=== PATIENT | male | born 1995 | race Hispanic/Latino ===

== ENCOUNTER 2017-10-29 15:02 | Inpatient (IN) | payer SELFPAY ==
[2017-10-29] MEDS ORDERED: Ondansetron HCl/PF 4 MG/2 ML Vial ONE (15:53)
[2017-10-29] MEDS ORDERED: Dextrose 50% Abboject 50 ML SYRINGE SLOW IVP PRN (17:59)
[2017-10-29] MEDS ORDERED: Dextrose 5% in Water 1,000 ML IV PRN (17:59)
[2017-10-29 18:01] LABS: #Eosinphils 0.2 thou/uL (0.0-0.7); #Lymphocytes 2.5 thou/uL (1.20-3.40); #Monocytes 0.9 thou/uL (0.11-0.59); #Neutrophils 6.2 thou/uL (1.40-6.50); %Basophils 0.4 % (0.0-1.0); %Eosinophils 1.6 % (0.0-10.0); %Lymphocytes 25.5 % (21.0-51.0); %Monocytes 9.4 % (0.0-10.0); %Neutrophils 63.1 % (42.0-75.0); Hemoglobin 14.5 g/dL (14.0-18.0); Mean Corpuscular HGB CONC 34.6 g/dL (32.0-36.0); Mean Corpuscular Hemoglobin 32.5 pg (27.0-31.0); Mean Corpuscular Volume 93.8 fl (80.0-94.0); Platelet Count 260 thou/uL (130-400); RBC Distribution Width 11.8 % (11.5-14.5); Red Blood Cell (RBC) Count 4.45 mill/uL (4.70-6.10); White Blood Cell (WBC) Count 9.9 thou/uL (4.8-10.8)
[2017-10-29] MEDS ORDERED: Acetaminophen 1,000 MG in Premix Bag 1 BAG IVPB PRN (18:01)
[2017-10-29 18:07] LABS: INR-International Normal Ratio 1.2; PTT 36.6 SEC (22.9-36.1); Prothrombin Time 15.1 SEC (12.0-14.7)
[2017-10-29 18:25] LABS: ALT (SGPT) 17 U/L (8-55); AST (SGOT) 16 U/L (5-34); Albumin 4.1 g/dL (3.5-5.0); Alkaline Phosphatase 74 U/L (40-150); Anion Gap 11 mmol/L (10-20); BUN (Urea Nitrogen) 17 mg/dL (8.9-20.6); Bilirubin, Total 1.9 mg/dL (0.2-1.2); Calc. Creatinine Clearance 0 mL/min (70-130); Calcium 9.1 mg/dL (7.8-10.44); Carbon Dioxide 26 mmol/L (22-29); Chloride 106 mmol/L (98-107); Estimated GFR-MDRD Greater than 90; Globulin 2.8 g/dL (2.4-3.5); Glucose 78 mg/dL (70-105); Potassium 4.1 mmol/L (3.5-5.1); Protein, Total 6.9 g/dL (6.0-8.3); Sodium 139 mmol/L (136-145)
[2017-10-29] MEDS: Lactated Ringer's 1,000 ML IV SCH (20:33)
[2017-10-29] MEDS: Enoxaparin Sodium 40 MG/0.4 ML SYRINGE SC SCH (20:34)
[2017-10-29 22:35] VITALS: BMI 29.2
[2017-10-29] MEDS: Ketorolac Tromethamine 30 MG/ML VIAL IVP SCH (23:51)
[2017-10-29] MEDS: Piperacillin/Tazobactam 4.5 GM in Sodium Chloride 0.9% 100 ML IVPB SCH (23:52)
[2017-10-30] MEDS: Piperacillin/Tazobactam 4.5 GM in Sodium Chloride 0.9% 100 ML IVPB SCH ×2 (05:30→18:50)
[2017-10-30] MEDS: Ketorolac Tromethamine 30 MG/ML VIAL IVP SCH ×2 (05:30→18:49)
[2017-10-30] MEDS: Lactated Ringer's 1,000 ML IV SCH ×2 (05:35→18:49)
--- NOTE | 2017-10-30 05:52 | HP ---
HISTORY OF PRESENT ILLNESS: Talon Land is a 22-year-old male, lives in [place], transferred fro m [facility] (Sunday). The patient onset of pain, right lower quadrant, Sunday he has had sub jective fever. He was transferred after a CAT scan in our Emergency Room, he had changes suggestive of appendicitis. He had a white count of 11,000. He is afebrile. ALLERGIES: None. TOBACCO: None. ALCOHOL: None. MEDICATIONS: None. PAST SURGICAL HISTORY: Noncontributory. PAST MEDICAL HISTORY: Except for asthma. He takes inhalers occasionally. REVIEW OF SYSTEMS: Noncontributory. 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 PHYSICAL EXAMINATION: VITAL SIGNS: Heart rate 75, respiratory 16, blood pressure 123/67. HEAD, EYES, EARS NOSE AND THROAT: Unremarkable. LUNGS: Clear to auscultation. CARDIAC: Regular rate and rhythm without murmur or gallop. ABDOMEN: Soft, tenderness in his right lower quadrant regarding abdomen, otherwise soft, nontender. EXTREMITIES: Unremarkable. ASSESSMENT AND PLAN: History and exam suggestive appendicitis. Recommend laparoscopic video appende ctomy. Risk of infection, bleeding, visceral injury explained, open procedure explained and he conse nts. We would plan this tonight, but the OR was backed up for at least 3-4 hours, so therefore we wi ll plan this sometime tomorrow.
[2017-10-30] MEDS ORDERED: Fentanyl 100 MCG/2 ML VIAL ONE (11:13)
[2017-10-30] MEDS ORDERED: Bupivacaine PF 0.5% 30 ML VIAL ONE (11:31)
[2017-10-30] MEDS ORDERED: Lidocaine 2% w/Epinephrine 1:200K 20 ML VIAL ONE (11:31)
[2017-10-30] MEDS ORDERED: Midazolam HCl 2 mg/2 ml Vial ONE (12:07)
[2017-10-30] MEDS ORDERED: Ondansetron ORAL SOLN. 4 MG/5 ML UDCUP PO PRN ×2 (12:28)
[2017-10-30] MEDS ORDERED: Ondansetron ODT 8 MG TAB SL PRN (12:28)
[2017-10-30] MEDS ORDERED: Ondansetron HCl/PF 4 MG/2 ML Vial IVP PRN (12:28)
[2017-10-30] MEDS ORDERED: Ondansetron ODT 4 MG TAB PO PRN (12:28)
[2017-10-30] MEDS ORDERED: traMADol HCl 50 MG TAB PO PRN (12:28)
[2017-10-30] MEDS ORDERED: Ondansetron ODT 8 MG TAB PO PRN (12:28)
[2017-10-30] MEDS ORDERED: Promethazine HCl 25 MG/ML VIAL SLOW IVP PRN (12:40)
[2017-10-30] MEDS ORDERED: Meperidine HCl/PF 25 MG/ML VIAL SLOW IVP PRN (12:40)
[2017-10-30] MEDS ORDERED: Promethazine HCl 25 MG/ML VIAL IM PRN (12:40)
--- NOTE | 2017-10-30 13:08 | OP ---
DATE OF PROCEDURE: 10/30/2017 PREOPERATIVE DIAGNOSIS: Acute appendicitis. POSTOPERATIVE DIAGNOSIS: Acute appendicitis. PROCEDURE: Laparoscopic video appendectomy. SURGEON: Tashi Butler M.D. ANESTHESIA: General. Local 0.5% Marcaine, 30 mL without epinephrine, 2% Xylocaine with epinephrine, 20 mL. DESCRIPTION OF PROCEDURE: The patient was taken to the operating room where under general anesthesia , abdomen was prepared with ChloraPrep, and draped in routine fashion. Local anesthetic infiltrated into skin and subcutaneous tissue about each port site. Tobin catheter was placed at the beginning o f the procedure and removed at the end. Infraumbilical incision made and pneumoperitoneum to 15 mmHg obtained with the Veress needle, replacing it with a 5 port, video laparoscope inserted. Suprapubic incision made and a 12 port placed. Right lateral subcostal incision made and a 5 port placed. Mes oappendix was taken down with the LigaSure. Stump of the appendix divided with Endo-DILIP blue load st apler. Stapled cecal stump was hemostatic and secure. Distal appendix was slightly swollen. There were some inflammatory changes around the appendix. The appendix submitted to Pathology. Good hemos tasis ensured. Irrigant and pneumoperitoneum evacuated. All instruments removed and suprapubic fasc ia approximated with 0 Vicryl. All skin incisions approximated with interrupted subdermal 4-0 Monocr yl and DermaGlue applied.
[2017-10-30] MEDS ORDERED: Ondansetron HCl/PF 4 MG/2 ML Vial IVP SCH (14:00)
[2017-10-30] MEDS: traMADol HCl 50 MG TAB PO PRN ×2 (15:39→21:44)
[2017-10-30] MEDS: Acetaminophen 500 MG TAB PO PRN ×2 (15:40→21:44)
--- NOTE | 2017-10-30 15:40 | DIS ---
DATE OF ADMISSION: 10/29/2017 DATE OF DISCHARGE: 10/30/2017 DISCHARGE DIAGNOSIS: Appendicitis. PROCEDURES: CT scan of pelvis and laparoscopic video appendectomy. HISTORY: A 22-year-old male patient with right lower quadrant pain for 2-3 days. He checked fever a t home. Seen in the emergency room in [place]. CAT scan revealed changes suggestive of appendicit is with some periappendiceal inflammatory changes. The patient was hospitalized and was to go to the operating room that evening, but the operating room was backed up for 3-4 hours. He was hospitalize d overnight, started on antibiotics, taken to the operating room the next day for laparoscopic video appendectomy. Postoperatively, discharged home with Tylenol and Ultram for pain as well as Motrin. Follow up in my office in 2-3 weeks. Follow up for a week time. Diet and activity as tolerated. No lifting restrictions.
[2017-10-30] MEDS ORDERED: Dexamethasone 20 MG/5 ML VIAL ONE (16:28)
[2017-10-30] MEDS ORDERED: Succinylcholine Chloride 20 MG/ML 10 ml SYRINGE FS ONE (16:28)
[2017-10-30] MEDS ORDERED: Ketorolac Tromethamine 30 MG/ML VIAL ONE (16:28)
[2017-10-30] MEDS ORDERED: Propofol 200 MG/20 ML VIAL ONE (16:28)
[2017-10-30] MEDS ORDERED: Ondansetron HCl/PF 4 MG/2 ML Vial ONE (16:28)
[2017-10-30] MEDS ORDERED: Lidocaine 1% PF 5 ML VIAL ONE (16:28)
[2017-10-30] MEDS ORDERED: Ibuprofen 600 MG TAB PO PRN (18:00)
[2017-10-30] MEDS ORDERED: Ketorolac Tromethamine 30 MG/ML VIAL IVP PRN (18:35)
[2017-10-30] MEDS: Enoxaparin Sodium 40 MG/0.4 ML SYRINGE SC SCH (21:44)
[2017-10-30] MEDS: Piperacillin/Tazobactam 3.375 GM in Sodium Chloride 0.9% 100 ML IVPB SCH (21:44)
[2017-10-31] MEDS: Piperacillin/Tazobactam 3.375 GM in Sodium Chloride 0.9% 100 ML IVPB SCH ×3 (01:57→19:28)
[2017-10-31] MEDS: traMADol HCl 50 MG TAB PO PRN ×3 (05:15→20:31)
[2017-10-31 08:23] LABS: #Lymphocytes 1.8 thou/uL (1.20-3.40); #Monocytes 0.7 thou/uL (0.11-0.59); #Neutrophils 6.6 thou/uL (1.40-6.50); %Basophils 0.2 % (0.0-1.0); %Eosinophils 0.1 % (0.0-10.0); %Lymphocytes 19.7 % (21.0-51.0); %Monocytes 7.3 % (0.0-10.0); %Neutrophils 72.7 % (42.0-75.0); Hemoglobin 13.8 g/dL (14.0-18.0); Mean Corpuscular HGB CONC 34.4 g/dL (32.0-36.0); Mean Corpuscular Hemoglobin 32.1 pg (27.0-31.0); Mean Corpuscular Volume 93.3 fl (80.0-94.0); Mean Platelet Volume 7.1 fL (7.4-10.4); Platelet Count 278 thou/uL (130-400); RBC Distribution Width 11.5 % (11.5-14.5); White Blood Cell (WBC) Count 9.1 thou/uL (4.8-10.8)
[2017-10-31 08:55] LABS: ALT (SGPT) 18 U/L (8-55); AST (SGOT) 15 U/L (5-34); Albumin 3.9 g/dL (3.5-5.0); Alkaline Phosphatase 69 U/L (40-150); Anion Gap 11 mmol/L (10-20); BUN (Urea Nitrogen) 13 mg/dL (8.9-20.6); Bilirubin, Total 0.9 mg/dL (0.2-1.2); Calc. Creatinine Clearance 179 mL/min (70-130); Calcium 9.3 mg/dL (7.8-10.44); Carbon Dioxide 24 mmol/L (22-29); Chloride 108 mmol/L (98-107); Estimated GFR-MDRD Greater than 90; Globulin 2.9 g/dL (2.4-3.5); Glucose 90 mg/dL (70-105); Protein, Total 6.8 g/dL (6.0-8.3); Sodium 139 mmol/L (136-145)
[2017-10-31] MEDS ORDERED: Iopamidol 370 76% 50 ML VIAL FS ONE (13:14)
[2017-10-31] MEDS ORDERED: ISOVUE-370 76%-LOCM 1 ML ONE (13:14)
--- NOTE | 2017-10-31 13:25 | PRG ---
DATE OF SERVICE: 10/27/2017 One day status post laparoscopic appendectomy. His [place] CAT scan revealed changes suggestive of cecal inflammation with questionable appendicitis. Patient underwent laparoscopic video appendectom y. Appendix looked pretty much unremarkable, perhaps a slightly dilated distal third tip. There was appreciated cecal inflammation at the time of surgery. The patient postoperatively is having compla ints of pain in pelvis radiating to both flanks. He seems to be tender in his right lower quadrant l aterally. PHYSICAL EXAMINATION: LUNGS: Clear to auscultation. CARDIAC: Regular rate and rhythm without murmur or gallop. ABDOMEN: Soft, bowel sounds present. His appetite is poor. LABORATORY DATA: His CBC and comprehensive metabolic profile are normal. Postoperatively, he has not had a bowel movement. At this point, we will repeat his CAT scan to eval uate his cecal inflammation. I have ordered stool studies, although he has not had a bowel movement postoperatively. Patient will be observed today in view of the CAT scan and consider other consultat ion pending results.
--- NOTE | 2017-10-31 16:40 | CT ---
ABDOMEN AND PELVIC CT WITH CONTRAST: COMPARISON: No prior comparison. CLINICAL HISTORY: Recent appendectomy with abdominal pain, nausea, and vomiting and diarrhea. FINDINGS: Postoperative stranding and air density of the ventral abdominal wall present, and there are scattere d locules of free intraperitoneal air correlating to the patient's history of appendectomy the day. There is postsurgical fat stranding at site of recent appendectomy. No drainable abscess. No bowel obstruction. Mild wall prominence of the distal ileum and cecum is non-specific. There is a small hypodensity anteriorly within the superior aspect of the spleen too small to definitively miky racterize. There are mildly enlarged lymph nodes of the abdomen that may be reactive. Bibasilar con solidation is present, partially imaged and incompletely assessed. IMPRESSION: 1. Postsurgical changes related to patient's recent appendectomy. No drainable abscess or bowel obs truction. Mild wall prominence of the distal ileum and cecum. Correlate clinically. 2. Incompletely assessed bibasilar consolidation. Consider radiographic followup to confirm resolut ion. POS: [facility]
[2017-10-31] MEDS ORDERED: Ibuprofen 600 MG TAB PO PRN (16:41)
[2017-10-31] MEDS: Enoxaparin Sodium 40 MG/0.4 ML SYRINGE SC SCH (20:31)
[2017-11-01] MEDS: traMADol HCl 50 MG TAB PO PRN (07:47)
[2017-11-01] MEDS: Acetaminophen 500 MG TAB PO PRN (07:48)
[2017-11-01 11:39] VITALS: BP 109/70; TEMP 98.4
--- NOTE | 2017-11-01 14:27 | PRG ---
DATE OF SERVICE: 11/01/2017 SUBJECTIVE: Mr. Talon Land is doing well today. He is tolerating his diet. His stool studies eckert bmitted were all negative. OBJECTIVE: LUNGS: Clear to auscultation. CARDIAC: Regular rate and rhythm without murmur or gallop. ABDOMEN: Soft, nontender. Laparoscopic wounds well healed. Pathology is pending. PLAN: Overall, the patient is doing well. He is ready for discharge home. He will take Tylenol, i buprofen p.r.n. pain, given prescription for Ultram to use as needed. 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
--- NOTE | 2017-11-02 03:08 | DIS ---
DATE OF ADMISSION: 10/29/2017 DATE OF DISCHARGE: 11/01/2017 DISCHARGE DIAGNOSES: Appendicitis, abdominal pain. HISTORY: A 22-year-old male who presented to [facility] for abdominal pain of 2-day duration. CAT sc an revealed changes suggestive of early appendicitis, although we seemed to have more inflammatory ch fannie around the cecum and less around the appendix. Patient underwent laparoscopic video appendectom y. Once transferred to this facility, his operation was delayed due to lack of operating room town i n the evening. His operation was performed the next day and findings at operation were mildly dilate d distal third of the appendix without inflammatory changes and inflammatory changes around the cecum . The patient postoperatively had too much pain, was slow to mobilize. He was kept an extra two day s. Stool studies obtained prior to discharge were negative. Patient's repeat CAT scan postoperative ly was obtained due to intraoperative findings of pericecal inflammation, but CAT scan postoperativel y was essentially unremarkable, reflecting only postoperative laparoscopic appendectomy changes. By the time of this dictation, patient's pain is resolved. He is passing flatus and stool, and tolerati ng his diet. He is discharged home with Tylenol and ibuprofen [id number] for pain. Diet and a ctivity as tolerated. No activity restrictions. 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 Ultram #21 refill prescribed as if ne eded for breakthrough pain. Diet and activity as tolerated without restrictions.
== END 2017-11-01 15:05 | disposition home or self-care (01) | DRG 343 ==
LOC: ERS 15:02 → SURG B 18:18
PROVIDERS: ADMIT Specialist; ATTEND Specialist
PROC: 0DTJ4ZZ Resection of Appendix, Percutaneous Endoscopic Approach (ICD-10-PCS; principal; 2017-10-30)
DX: K35.80 Unspecified acute appendicitis (principal); J45.909 Unspecified asthma, uncomplicated
CPT/HCPCS: 36415; 74177; 80053; 83630; 85025; 85610; 85730; 86850; 86900; 86901; 87045; 87046; 87324; 87449; 87899; 88304; 96361; 96374; 96375; 99285; J0131; J1100; J1650; J1885; J2001; J2250; J2270; J2405; J2543; J2704; J3010; J7050; S0020

== ENCOUNTER 2017-11-12 17:51 | Emergency (ER) | payer SELFPAY ==
[2017-11-12 18:14] LABS: #Basophils 0.1 thou/uL (0.0-0.2); #Eosinphils 0.2 thou/uL (0.0-0.7); #Lymphocytes 2.8 thou/uL (1.20-3.40); #Monocytes 0.5 thou/uL (0.11-0.59); #Neutrophils 4.5 thou/uL (1.40-6.50); %Basophils 0.9 % (0.0-1.0); %Eosinophils 2.1 % (0.0-10.0); %Lymphocytes 34.2 % (21.0-51.0); %Monocytes 6.6 % (0.0-10.0); %Neutrophils 56.2 % (42.0-75.0); Hemoglobin 15.4 g/dL (14.0-18.0); Mean Corpuscular HGB CONC 34.2 g/dL (32.0-36.0); Mean Corpuscular Hemoglobin 31.5 pg (27.0-31.0); Mean Corpuscular Volume 92.1 fl (80.0-94.0); Platelet Count 359 thou/uL (130-400); RBC Distribution Width 11.6 % (11.5-14.5)
[2017-11-12 18:36] LABS: ALT (SGPT) 38 U/L (8-55); AST (SGOT) 23 U/L (5-34); Albumin 4.7 g/dL (3.5-5.0); Alkaline Phosphatase 89 U/L (40-150); Anion Gap 11 mmol/L (10-20); BUN (Urea Nitrogen) 15 mg/dL (8.9-20.6); Bilirubin, Total 0.7 mg/dL (0.2-1.2); Calc. Creatinine Clearance 0 mL/min (70-130); Calcium 10.1 mg/dL (7.8-10.44); Carbon Dioxide 25 mmol/L (22-29); Chloride 106 mmol/L (98-107); Estimated GFR-MDRD Greater than 90; Globulin 3.6 g/dL (2.4-3.5); Glucose 81 mg/dL (70-105); Potassium 4.4 mmol/L (3.5-5.1); Protein, Total 8.3 g/dL (6.0-8.3); Sodium 138 mmol/L (136-145)
[2017-11-12] MEDS ORDERED: Ondansetron ODT 4 MG TAB ONE (18:36)
--- NOTE | 2017-11-12 21:00 | RAD ---
FRONTAL RADIOGRAPH OF CHEST TWO VIEWS OF ABDOMEN: Date: 11-12-17 Comparison: None. History: Pain. FINDINGS: Frontal radiographic chest demonstrates no pneumothorax, pleural fluid, focal consolidation or alveol ar edema. Upright and supine imaging of abdomen/pelvis demonstrates a nonobstructed bowel gas pattern. No evide nce for free intraperitoneal air. There is a suture line in the right lower quadrant. IMPRESSION: Right lower quadrant suture line noted. No evidence for free intraperitoneal air, small bowel obstruc tion, or acute cardiopulmonary disease. POS: [facility]
== END 2017-11-12 19:59 | disposition home or self-care (01) ==
LOC: ERS 17:51
DX: G89.18 Other acute postprocedural pain (principal); R10.30 Lower abdominal pain, unspecified; R11.2 Nausea with vomiting, unspecified; J45.909 Unspecified asthma, uncomplicated
CPT/HCPCS: 36415; 74022; 80053; 85025; Q0162